=== PATIENT | male | born 1975 | race Caucasian/White ===

== ENCOUNTER 2024-07-09 10:34 | Outpatient (AMB) | payer BC, SELFPAY ==
--- NOTE | 2024-07-09 10:57 | A.OFFVIS_ITS ---
Vital Signs 3 07/09/24 11:03 Height 5 ft 10 in Weight 196 lb 8 oz BMI 28.2 BP 140/89 H Blood Pressure Location Lt brachial Position Sitting Pulse 66 Intake Visit Reasons: subcutaneous liopmas (R) arm and chest Intake Note: Patient is seen in office for evaluation of a lipoma of the right arm and chest. Pt c/o: right arm is recurrent for about a year, removed 6 yrs ago, chest has been present for a few months, painful and tender near the ribs, left arm onset 3 yrs, denies pain, redness, discharge or other concerns ref Dr Christianson Hand Molder Meat Required: No Accompanied by: Self / Same As Patient Allergies Penicillins Allergy (Mild, Verified 07/09/24 11:02) Hives Medication List - Last Reconciled 07/09/24 by Kartik Fong MD lisinopril 20 mg PO DAILY HPI Comments Details: 49-year-old male patient presenting for evaluation of several skin lipomas located in bilateral arms and right chest wall. He reports having a lesion excised from the right arm approximately 6 years ago and now this has recurred in the same location, 1st noted approximately 1 year ago. This is located in the forearm and seems to be increasing in size. A 2nd lesion located on the left upper arm also seems to be increasing in size was noted to have a bluish discoloration. He denies any previous surgery at this location. A 3rd location which is causing discomfort is in the right chest below the right nipple. He reports pain when the lump is palpated. He again denies any surgery at this location. He presents today to discuss removal of all 3 lesions. [facility] Surgical History Hx of tonsillectomy Hx of umbilical hernia repair Social History Alcohol intake: current Patient Tobacco Use Status: Never used Tobacco Review of Systems Const All systems reviewed & are unremarkable except as noted in HPI and below Physical Exam Vital Signs: Last Vital Signs Pulse 66 07/09/24 11:03 BP 140/89 H 07/09/24 11:03 BMI result Body Mass Index 28.2 Const General: comfortable Nutritional Appearance: well nourished Orientation/consciousness: patient oriented x3 Chest Other: Palpable soft tissue mass located below the right nipple measuring approximately 1.5 cm in diameter. Masses mobile within the subcutaneous tissue and most consistent with a lipoma. There is tenderness to palpation. Chest/axillae images: 2 1. Site of palpable lipoma 1.5 cm diameter. Resp Effort & Inspection: normal respiratory effort, no audible wheezes, no cough and no respiratory distress GI Inspection: Yes normal to inspection Neuro General: patient oriented x3 Extrem Other: Right forearm with a 1.5 cm soft tissue mass mobile within the subcutaneous tissue most consistent with a lipoma with no overlying skin changes. Left upper arm with a 1.5 cm soft tissue mass mobile within the subcutaneous tissue with a bluish discoloration but mobile within the subcutaneous tissue either a varix or lipoma. Shoulder/upper arm images: 2 1. Elbow/forearm/wrist images: 2 1. Assessment & Plan Assessment & Plan (1) Lipoma: Code(s): D17.9 - Benign lipomatous neoplasm, unspecified Category: Medical Plan 49-year-old male patient presenting with multiple lipoma including the right forearm, left upper arm and right chest wall all of which are increasing in size and causing some discomfort. Patient has requested excision of the 3 lesions and after discussion of the procedure, risks and alternatives, consents to excision of the lipomas as a minor surgery under local anesthesia. Coding Level of Care Code New Pt Level 4 (34491) Diagnoses Lipoma D17.9
[2024-07-09 11:03] VITALS: BP 140/89; PULSE 66; BMI 28.2
== END 2024-07-09 11:14 | disposition home or self-care (01) ==
PROVIDERS: PCP Internal Medicine; Visit Provider Surgery
DX: D17.9 Benign lipomatous neoplasm, unspecified (principal)
CPT/HCPCS: 99204

== ENCOUNTER → 2024-07-09 10:34 | Outpatient (BNVA) | payer BC, SELFPAY | PROVIDERS: PCP Internal Medicine; Visit Provider Surgery ==

== ENCOUNTER 2024-08-27 | Outpatient (REF) | payer BC, SELFPAY ==
[2024-08-27 13:19] VITALS: BP 162/93; PULSE 69; RESP 18; TEMP 36.6; O2SAT 99; BMI 27.3
--- NOTE | 2024-08-27 14:13 | W.PM.OPN ---
Operative Note Operative Note Date of Service: 08/27/24 Narrative: Preoperative diagnosis: Lipoma right forearm, right chest, left upper arm and left forearm Postoperative diagnosis: Same Procedure: Excision lipoma right forearm, right chest, left upper arm and left forearm Surgeon: Kartik Fong MD Bandage Maker: None Anesthesia: Local lidocaine 1% with epinephrine Indications for procedure: 49-year-old male patient presenting with painful soft tissue subcutaneous masses located in the above-noted locations. Each measured 1 cm in diameter. Operative findings: 1 cm lipomas involving the right forearm, right chest, right upper arm and right forearm Specimen: Lipoma x 4 right forearm, right chest, right upper arm and right forearm Estimated blood loss: 2 mL Complications: None Procedure details: Patient was brought to the minor surgery suite and placed in a supine position. The site of surgery was confirmed by the patient as noted above. Beginning on the right side the right chest and right forearm were prepped with Betadine and draped in a sterile fashion. Local anesthesia was then infiltrated over the 2 lesions. Beginning in the chest a transverse incision was made with a scalpel and carried out through subcutaneous tissue up to the lipoma. The lipoma was then sharply dissected from the surrounding subcutaneous tissue. The lesion was completely excised and sent to pathology for further examination. Light pressure was held to maintain hemostasis. Skin was closed using interrupted 4-0 Polysorb sutures in a subcuticular fashion. Attention was then directed to the right forearm. Again a longitudinal incision was made over the lipoma and carried out through subcutaneous tissue up to the lipoma. Sharp dissection was then used to dissect the lipoma from the surrounding subcutaneous tissue. An overlying vein was identified and preserved. The lesion was completely excised and sent to pathology for further examination. Skin was again closed using interrupted 4-0 Polysorb sutures. Both incisions were then dressed with Steri-Strips, 2 x 2 gauze and Tegaderm. Attention was then directed to the left arm where the forearm and upper arm lesions were prepped with Betadine and draped in a sterile fashion. Again local anesthesia was infiltrated over both lesions. Beginning in the forearm an incision was made directly over the lesion and carried out through subcutaneous tissue up to the lipoma. The lipoma immediately was able to be removed without any significant attachments. This was passed off the table and sent to pathology for further examination. Skin was then reapproximated using interrupted 4-0 Polysorb subcuticular sutures. Attention was then directed to the upper arm lesion were again incision was made in a longitudinal fashion directly over the lesion. Once again the lesion easily was removed and sent to pathology for further examination. Skin was closed using interrupted 4-0 Polysorb sutures in a subcuticular formation. Sterile dressings consisting of Steri-Strips, 2 x 2 gauze and Tegaderm were then applied. The patient tolerated the procedure well. Sponge, instrument, and needle counts reported as correct. The patient was discharged to home in stable condition.
--- OUTSIDE RECORDS SUMMARY | 2024-08-30 08:55 | XMS_ITS | Clinical Summary ---
Author Organization [facility] Address [address] [place] [address] Care Team Providers Care Research Home Economist Name Role Phone Unavailable Primary Care Provider Unavailabl e Source Comments PLEASE NOTE, if this patient is a minor, it may be UNLAWFUL to discuss sensitive information that is contained in these records (such as FAMILY PLANNING, MENTAL HEALTH or SUBSTANCE ABUSE) with the minor patient's parent or other person without the patient's specific authorization.[facility] Allergies Active Allergy Reactions Criticality Noted Date Comments Penicillin Anaphylaxis 02/23/2015 Medications polyethylene glycol (GLYCOLAX, MIRALAX) 17 gram/dose powderIndications :Constipation - functional Take 17 g by mouth once daily. Dissolve in a glass (8 oz) of water. 1530 g 1 5 Active albuterol sulfate hfa 90 mcg/actuation inhalerIndication s:Seasonal allergies Inhale 2 Puffs into the lungs every 4 to 6 (four to six) hours as needed for shortness of breath. 8.5 g 2 6 Active cetirizine (ZYRTEC) 10 mg tabletIndications :Seasonal allergies Take 1 Tab by mouth once daily. 30 Tab 5 6 Active benzonatate (TESSALON) 100 mg capsuleIndication s:Viral pharyngitis Take 1 Cap by mouth 3 (three) times daily as needed for cough Swallow whole. 20 Cap 2 7 Active azithromycin (ZITHROMAX) 250 mg tabletIndications :Bacterial sinusitis Take 1 Tab by mouth once daily 6 Tab 0 7 Active fluticasone (FLOVENT HFA) 44 mcg/actuation inhalerIndication s:Mild persistent asthma without complication Inhale 2 Puffs into the lungs 2 (two) times daily 3 Inhaler 0 7 Active Active Problems Problem Noted Date Diagnosed Date S/P tonsillectomy 07/18/2016 Immunizations Name Administration Dates Next Due Hep B, Adult/Adol (ENERGIX/RECOMBIVAX) 6,10/03/2015,08/21/2015 TDAP 08/21/2015 Social History Tobacco Use Types Packs/Day Years Used Date Smoking Tobacco: Never Smokeless Tobacco: Never Alcohol Use Standard Drinks/Week Comments Yes 3 (1 standard drink = 0.6 oz pur e alcohol) Social Connections Answer Date Recorded Social Connections and Isolation 0 02/14/2019 Financial Resource Strain Answer Date R ecorded Financial Resource Strain 0 2018 Stress Answer Date Recorded Stress 0 02/14/2019 Physical Activity Answer Date Recorded Physical Activity 0 02/14/2019 Food Insecurity Answer Date Recorded Food 0 02/14/2019 Transportation Needs Answer Date Record ed Transportation 0 02/14/2019 Housing Stability Answer Date Recorded Housing 0 02/14/2019 Safety and Environment Answer Date Aren rded Safety 0 02/14/2019 Utilities Answer Date Recorded Utilities 0 02/14/2019 Employment Answer Date Recorded Employment 0 02/14/2019 Sex and Gender Information Value Date Recorded Sex Assigned at Not on file Legal Sex Male 2:22 PM PDT Gender Identity Not on file Sexual Orientation Not on file Last Filed Vital Signs Vital Sign Reading Time Taken Comments Blood Pressure 130/88 09/10/2016 8:51 AM EDT Pulse 83 09/10/2016 8:51 AM EDT Temperature 36.7 ??C (98 ??F) 09/10/2016 8:51 AM EDT Respiratory Rate 14 09/10/2016 8:51 AM EDT Oxygen Saturation - - Inhaled Oxygen Concentration - - Weight 99.5 kg (219 lb 6.4 oz) 09/10/2016 8:51 A M EDT Height 175.3 cm (5' 9 ) 02/22/2016 11:17 AM EDT Body Mass Index 32.4 02/22/2016 11:17 AM EDT Plan of Treatment Not on file Insurance [employer]
--- OUTSIDE RECORDS SUMMARY | 2024-08-30 09:46 | XMS_ITS | Clinical Summary ---
Author Organization [facility] Address [address] [place] [address] Care Team Providers Care Shactor Helper Name Role Phone Unavailable Primary Care Provider [...] Plan of Treatment Not on file Insurance [email or web address]
== END 2024-08-27 00:01 | disposition home or self-care (01) ==
LOC: HO.MS
PROVIDERS: PCP Internal Medicine; Visit Provider Surgery
PROC: (CPT 11404; principal; 2024-08-27 13:30)
DX: D17.21 Benign lipomatous neoplasm of skin and subcutaneous tissue of right arm (principal); D17.22 Benign lipomatous neoplasm of skin and subcutaneous tissue of left arm; D17.1 Benign lipomatous neoplasm of skin and subcutaneous tissue of trunk
CPT/HCPCS: 11404; 88304; J2004

== ENCOUNTER → 2024-08-27 13:30 | Outpatient (BNV) | payer BC, SELFPAY | PROVIDERS: PCP Internal Medicine; Visit Provider Surgery | DX: D17.1 Benign lipomatous neoplasm of skin and subcutaneous tissue of trunk (principal); D17.21 Benign lipomatous neoplasm of skin and subcutaneous tissue of right arm; D17.22 Benign lipomatous neoplasm of skin and subcutaneous tissue of left arm | CPT/HCPCS: 21555; 24075; 25075 ==

== ENCOUNTER 2024-09-10 11:17 | Outpatient (AMB) | payer BC, SELFPAY ==
--- NOTE | 2024-09-10 11:19 | A.OFFVIS_ITS ---
Vital Signs 09/10/24 11:23 Height 5 ft 10 in Weight 189 lb 9.561 oz BMI 27.2 Respiration 18 Pulse 62 Intake Visit Reasons: s/p excision lipoma x3 Intake Note: Patient is seen in office for post op assessment post excision of multiple lipomas x3. Pt c/o: right arm lesion still has a lump not healing right per pt, no concerns regarding the other lesions, healing Chemical Process Equipment Operator Required: No Accompanied by: Self / Same As Patient Allergies Penicillins Allergy (Mild, Verified 09/10/24 11:20) Hives HPI Comments Details: 49-year-old male patient returning following excision of 4 lipomas involving the chest wall, and bilateral upper extremities. He tolerated the procedure well. He does note some swelling of the lipoma located in his right arm which may be a small seroma. The remaining wounds are clean and intact. He denies any other bleeding or discharge. [facility] Surgical History S/P excision of lipoma (08/27/24) Hx of tonsillectomy Hx of umbilical hernia repair Social History Alcohol intake: current Patient Tobacco Use Status: Never used Tobacco Physical Exam Vital Signs: Last Vital Signs Pulse 62 09/10/24 11:23 Resp 18 09/10/24 11:23 BMI result Body Mass Index 27.2 Const General: comfortable Nutritional Appearance: well nourished Orientation/consciousness: patient oriented x3 Chest Other: Incision in the right upper chest is clean, dry, and intact without redness or discharge. No palpable seroma or hematoma. Resp Effort & Inspection: normal respiratory effort, no audible wheezes, no cough and no respiratory distress GI Inspection: Yes normal to inspection Neuro General: patient oriented x3 Extrem Other: Right forearm incision is clean and intact. There is a palpable seroma with no erythema or ecchymosis. Left upper arm with incisions are clean, dry, and intact without redness or discharge. No seroma or hematoma is appreciated. Assessment & Plan Assessment & Plan (1) Lipoma: Code(s): D17.9 - Benign lipomatous neoplasm, unspecified Category: Medical Qualifiers: Lipoma location: upper extremity Laterality: unspecified laterality Qualified Code(s): D17.20 - Benign lipomatous neoplasm of skin and subcutaneous tissue of unspecified limb Plan 49-year-old male patient presenting with bilateral upper extremity lipomas and right chest wall lipoma previously excised 1 week ago. He tolerated the procedure well and his wounds are healing nicely. He does have a small seroma in the right arm which I recommended observation. If he should develop increased swelling, pain or redness he should call for possible aspiration. He expressed understanding and agrees with the plan. Coding Level of Care Code Global (26161) Diagnoses Lipoma of upper extremity, unspecified laterality D17.20 Lipoma location: upper extremity Laterality: unspecified laterality
[2024-09-10 11:23] VITALS: PULSE 62; RESP 18; BMI 27.2
--- OUTSIDE RECORDS SUMMARY | 2024-09-10 13:49 | XMS_ITS | Clinical Summary ---
Author Organization [facility] Address [address] [place] [address] Care Team Providers Care Cell Biologist Name Role Phone Unavailable Primary Care Provider [...] Plan of Treatment Not on file Insurance [employer]
== END 2024-09-10 11:31 | disposition home or self-care (01) ==
LOC: HO.HGS 11:18
PROVIDERS: PCP Internal Medicine; Visit Provider Surgery
DX: D17.20 Benign lipomatous neoplasm of skin and subcutaneous tissue of unspecified limb (principal)
CPT/HCPCS: 99024

== ENCOUNTER → 2024-09-10 11:17 | Outpatient (BNVA) | payer BC, SELFPAY | PROVIDERS: PCP Internal Medicine; Visit Provider Surgery ==

== ENCOUNTER 2025-01-28 10:17 | Outpatient (AMB) | payer BC, SELFPAY ==
--- OUTSIDE RECORDS SUMMARY | 2025-01-07 10:10 | XMS_ITS ---
Author Organization [facility] Address [address] [place] [phone] Care Team Providers Care Boat Hand Name Role Phone Meghan (RETIRED) Filipe HEAD Primary Care Provider Unavailable Barber Sheffield [phone] REASON FOR VISIT screening Encounters Encounter Location Date Provider Diagnosis [facility] [place] [address] [place] [id number] 01/07/2025 Barber Sheffield Plan Of Treatment Next Appt Details Provider Name:Barber Sheffield , 02/28/2025 11:30:00 AM, [address] [place] [address], [phone], Progress Notes * ROA OCTAVIO PDOB:1975 ( 49 yo M)Acc No.[id number]:01/07/2025 COLON WITH MAC Patient: KRISTIE JAYZaria Fowler Provider: Hiram Sheffield MD :1975 A ge:49 Y S ex:Male Date:01/07/2025 Address:[address] [address], [id number] Pcp:Filipe Christianson (RETIRED) MD Subjective: * Chief [...] 01/07/2025 Generated for Rogers meza/Kaiden/eTransmitting on: 0 01/28/2025 10:20 AM EDT
--- OUTSIDE RECORDS SUMMARY | 2025-01-28 10:20 | XMS_ITS | Clinical Summary ---
Author Organization [facility] Address [address] [place] [address] Care Team Providers Care Expense Analyst Name Role Phone Unavailable Primary Care Provider [...] mcg/actuation inhalerIndication s:Mild persistent asthma without complication ([facility]) Inhale 2 Puffs into the lungs 2 (two) times daily 3 Inhaler 0 7 Active Active Problems Problem Noted Date Diagnosed Date S/P tonsillectomy 07/18/2016 Immunizations Immunization Administration Dates Next Due Hep B, Adult/Adol ([id number]-H-ZNDAD/RECOMBIVAX-ADULT) 02/28/2016,10/03/2015,08/21/2015 TDAP 08/21/2015 Social History Tobacco Use [...] Plan of Treatment Not on file Insurance [employer]
--- OUTSIDE RECORDS SUMMARY | 2025-01-28 10:20 | XMS_ITS | Clinical Summary ---
Author Organization [facility] Address [address] [place] [address] Phone Care Team Providers Care Cover Operator Name Role Phone Emma Carline Stapleton INTERNAL MEDICINE NURSE PRACTITIONER, DNP Unavailable Allergies Active Allergy Reactions Criticality [...] EDT) CHOLESTEROL 164 0 - 200 MG/DL [facility] TRIGLYCERIDE 74 0 - 150 MG/DL [facility] HDL 55 >39 MG/DL [facility] CHOL/HDL 3.0 <5 [facility] LDL 94 40 - 130 MG/DL [facility] NON-HDL CHOLESTEROL 109.0 MG/DL [facility] Comment: Reference Range: The non-HDL Cholesterol value should not exceed the desired LDL-C by more than 30 mg/dl. 10/09/2015 9:19 AM EDT 10/09/2015 1:11 PM EDT us Conversion Provider Not In Sys LAB BLOOD ORDERAB LES Final Result Performing Organization Address City/State/[facility] Co de Phone Number [place] [phone], [facility] from Last 3 Months or Most Recently Relevant to Health Maintenance Insurance [facility] COMPLETE O [facility] COM[facility] O [facility] HMO [facility] COMPLETE HMO [facility] COMPLETE HMO [facility] COMPLETE HMO Care Teams Cover Operator Relationship Specialty Start Date End Date Carline Carter, INTERNAL MEDICINE NURSE PRACTITIONER, DNP [address] [place] [address] JESSIE Lopez [phone] [email or web address] Nurse Practitioner 10/08/23 Additional Source Comments The information contained in this document represents components of the legal health record. It is not the complete legal health record.[facility]
--- NOTE | 2025-01-28 10:30 | MHC.PC.OV ---
Vital Signs 01/28/25 10:33 Height 5 ft 10 in Weight 209 lb BMI 30.0 BP 121/71 Respiration 14 Pulse 62 Pulse Source Pulse Oximeter Temp 98.2 F Temp Source Temporal Artery Scan Pulse Oximetry (%) 99 Oxygen Delivery Method Room Air Intake Visit Reasons: establish care Sugar Boiler Required: No Accompanied by: Self / Same As Patient Allergies Penicillins Allergy (Mild, Verified 01/28/25 11:55) Hives Medication List - Last Reconciled 01/28/25 by Tiffanie Nichole PA-C lisinopril 20 mg PO DAILY Tobacco use date assessed: 01/28/25 Dental Screening Dental Screen Date: 01/28/25 Did you have a dental visit in the last 12 months?: Yes Did you have a dental problem in the last 6 months where you did not have access to dental care?: No Was dental information given to patient?: Patient has dentist HPI establish care HPI Details The patient is a 49-year-old male presenting for a new patient appointment and management of essential hypertension. The patient has a history of essential hypertension, currently managed with lisinopril 20 mg daily. He reports that his blood pressure was previously elevated at 145/90 mmHg but has improved with increased hydration and exercise. The patient engages in regular physical activity, including running, and has noticed improvement in blood pressure control with adequate hydration. The patient is due for routine blood work, including CBC, CMP, hemoglobin A1c, cholesterol, liver panel, magnesium, vitamin B12, vitamin D, PSA, and testosterone. He is also scheduled for STI testing, including syphilis, HIV, gonorrhea, and chlamydia. Family history is significant for prostate cancer, lung cancer, and breast cancer in his grandfathers. The patient has no personal history of cancer and has had a lipoma removed in the past, which was benign. Social History - Exercise: Engages in regular physical activity, including running. - Family status: Has a family history of prostate, lung, and breast cancer in grandfathers. [facility] Medical History (Updated 01/28/25 @ 11:59 by Tiffanie Nichole PA-C) Encounter for preventative adult health care examination Hypertension General medical exam Surgical History S/P excision of lipoma (08/27/24) Hx of tonsillectomy Hx of umbilical hernia repair Family History Father Diabetes Stroke Mother BP (high blood pressure) Hyperthyroidism Social History Housing: Condominium Alcohol intake: current Alcohol intake frequency: a few times a week Patient Tobacco Use Status: Never used Tobacco service: No Current occupational status: employed Cognitive needs: No Hearing needs: No Vision needs: Yes (rx glasses) Questionnaire PHQ-9 Over the last 2 weeks, how often have you been bothered by any of the following problems? 1. Little interest or pleasure in doing things: not at all 2. Feeling down, depressed, or hopeless: not at all 3. Trouble falling or staying asleep, or sleeping too much: not at all 4. Feeling tired or having little energy: not at all 5. Poor appetite or overeating: not at all 6. Feeling bad about yourself - or that you are a failure or have let yourself or your family down: not at all 7. Trouble concentrating on things, such as reading the newspaper or watching television: not at all 8. Moving or speaking so slowly that other people could have noticed. Or the opposite - being so fidgety or restless that you have been moving around a lot more than usual: not at all 9. Thoughts that you would be better off or of hurting yourself in some way: not at all Total score: 0 Depression Screening Interpretation: Negative Depression Screening Done: Yes 76713 - PHQ-9 Billing: Yes Source: Developed by Drs. Barber Denton, Merline Post, Dean Rivera and colleagues, with an educational seamus from [employer] software. Thrive Questionnaire Date Thrive assessed: 01/28/25 I am a: Patient What is your living situation today?: I have a steady place to live Within the past 12 months, did the food you bought not last and you didn't have the money to get more?: Never true Within the past 12 months, did you worry whether your food would run out before you got money to buy more?: Never true Do you have trouble paying for medicines?: No Do you have trouble getting transportation to medical appointments?: No Do you have trouble paying your heating and electricity bill?: No Do you have trouble taking care of your child, family member or friend?: No Do you have trouble with day-to-day activities such as bathing, preparing meals, shopping, managing finances, etc.?: No Are you currently unemployed and looking for a job?: No Are you interested in more education?: No Please select the resources that you would like help with: None THRIVE Score: 0 AUDIT C Alcohol Use Questionnaire (AUDIT-C) 1. How often do you have a drink containing alcohol?: 2-3 times a week 2. How many drinks containing alcohol do you have on a typical day when you are drinking?: 1 or 2 3. How often do you have six or more drinks on one occasion?: Never Total Score: 3 Score Reviewed/Action Taken: No WILFREDO-7 AMB Questionnaire WILFREDO-7 Date WILFREDO - 7 assessed: 01/28/25 Feeling nervous, anxious, or on edge: 0 = Not at all Not being able to stop or control worryin = Not at all Worrying too much about different things: 0 = Not at all Trouble relaxin = Not at all Being so restless that it is hard to sit still: 0 = Not at all Becoming easily annoyed or irritable: 0 = Not at all Feeling afraid as if something awful might happen: 0 = Not at all Total WILFREDO-7 score (0-4 normal; 5-9 mild; 10-14 moderate; 15-21 severe): 0 Source: Developed by Drs. Barber Denton, Merline Post, Dean Rivera and colleagues, with an educational seamus from [employer] software. WILFREDO-7 Assessment Billing WILFREDO-7 Assessment Tool: WILFREDO-7 Assessment 06430 Review of Systems Const Details: - Cardiovascular: Denies chest pain. - Gastrointestinal: Denies abdominal pain. - Genitourinary: Denies dysuria. - Dermatological: Denies rashes. - Musculoskeletal: Denies foot pain. All systems reviewed & are unremarkable except as noted in HPI and below Physical exam (Primary Care) Vital Signs: Last Vital Signs Temp 98.2 F 01/28/25 10:33 Pulse 62 01/28/25 10:33 Resp 14 01/28/25 10:33 BP 121/71 01/28/25 10:33 Pulse Ox 99 08/08/25 10:33 Oxygen Delivery Method Room Air 01/28/25 10:33 Care Plan Goal for BP management: <140/90 at Goal BMI result Body Mass Index 30.0 BMI Assessment/Plan discussion: High BMI High, discussed plan: lifestyle, weight reduction, dietary, physical activity, alcohol moderation and other Tobacco/Smoking Status: Tobacco use Status Tobacco use date assessed 01/28/25 01/28/25 10:37 Patient Tobacco Use Status Never used Tobacco 01/28/25 10:37 PHQ-9: PHQ-9 Score PHQ-9: Total score 0 01/28/25 10:37 Depression Screening Interpretation: Negative Thrive Assessment: Date of Thrive Assessment Date Thrive assessed 01/28/25 01/28/25 10:37 Const Other: Appearance: Alert. Oriented X3. No acute distress. Head: Normal external exam. Normocephalic. Atraumatic. Eyes: Pupils are equal, round, and reactive to light. Extraocular movements intact. Conjunctiva and sclera normal. Eyelids normal. Ears: External auditory canal normal. Tympanic membranes normal. Throat: Pharynx normal. Uvula midline. Moist mucous membranes. Neck: Normal inspection. Neck supple. Full range of motion. No adenopathy. Thyroid Normal. No meningeal signs. No neck mass noted. Cardiovascular: Normal heart rate and rhythm. Heart sound normal. No murmurs noted. Pulses normal throughout. Respiratory: No respiratory distress. Painless inspiration. Breath sounds normal. No wheezes/rales/rhonchi noted. Chest nontender. No accessory muscle usage noted or decreased air movement noted. Abdomen: Soft and nontender. Bowel sounds normal in all 4 quadrants. No distention noted. No organomegaly noted. No visible injury noted. Back: No costovertebral angle tenderness. Full range of motion noted. Skin: Skin warm and dry. Normal skin color. Normal skin turgor. No rashes/lesions/lacerations noted. Extremities: No lower extremity edema. Extremities exhibit normal range of motion. Extremities nontender. Neuro: Oriented X 3. No motor deficit. No sensory deficit. Reflexes normal. Coding Level of Care Code New Pt Level 4 (46806) Complex EM visit Add On G2211 Diagnoses Hypertension I10 Encounter for preventative adult health care examination Z00.00 Additional Codes PHQ-9 - 61394 - PHQ-9 Billing: Yes ([id number]) WILFREDO-7 Assessment Billing - WILFREDO-7 Assessment Tool: WILFREDO-7 Assessment 31570 ([id number]) Assessment & Plan Assessment & Plan (1) Hypertension: Code(s): I10 - Essential (primary) hypertension Category: Medical Plan: The patient is currently on lisinopril 20 mg daily for management of essential hypertension. He has been advised to monitor his blood pressure and consider reducing the dose if his blood pressure remains consistently low. Increased hydration and regular exercise have been recommended to aid in blood pressure control. (2) Encounter for preventative adult health care examination: Code(s): Z00.00 - Encounter for general adult medical examination without abnormal findings Category: Medical Plan: Routine blood work has been ordered, including CBC, CMP, hemoglobin A1c, cholesterol, liver panel, magnesium, vitamin B12, vitamin D, PSA, and testosterone. STI testing, including syphilis, HIV, gonorrhea, and chlamydia, has also been scheduled. The patient has been instructed to complete these tests while fasting. Plan Plan Patient was informed and verbally consented to the use of an ambient scribe for clinic note documentation during this visit. 1. Essential Hypertension The patient is currently on lisinopril 20 mg daily for management of essential hypertension. He has been advised to monitor his blood pressure and consider reducing the dose if his blood pressure remains consistently low. Increased hydration and regular exercise have been recommended to aid in blood pressure control. 2. Preventative Care Routine blood work has been ordered, including CBC, CMP, hemoglobin A1c, cholesterol, liver panel, magnesium, vitamin B12, vitamin D, PSA, and testosterone. STI testing, including syphilis, HIV, gonorrhea, and chlamydia, has also been scheduled. The patient has been instructed to complete these tests while fasting. During the visit, we discussed the management of essential hypertension, including the current use of lisinopril 20 mg daily. I advised the patient to monitor his blood pressure and consider dose adjustment if his blood pressure remains low. We also discussed the importance of hydration and regular exercise in managing blood pressure. Preventative care measures were reviewed, including the need for routine blood work and STI testing. The patient was instructed to complete these tests while fasting and was informed about the process for obtaining the tests. Orders: Orders Complete Blood Count Auto Diff Today Z00.00 - Encounter for general adult medical examination without abnormal findings Comprehensive [place]. Panel Fast Today Z00.00 - Encounter for general adult medical examination without abnormal findings Lipid Panel Today Z00.00 - Encounter for general adult medical examination without abnormal findings Vitamin D 25-OH Total Today Z00.00 - Encounter for general adult medical examination without abnormal findings PSA,Total (Free>4and<10) Today Z00.00 - Encounter for general adult medical examination without abnormal findings Testosterone, Free/Total Today Z00.00 - Encounter for general adult medical examination without abnormal findings Dihydrotestosterone Today Z00.00 - Encounter for general adult medical examination without abnormal findings DHEA Sulfate Today Z00.00 - Encounter for general adult medical examination without abnormal findings RPR Monitor reflex titer Today Z00.00 - Encounter for general adult medical examination without abnormal findings CT NG by PCR Urine Today Z00.00 - Encounter for general adult medical examination without abnormal findings C Reactive Protein Today Z00.00 - Encounter for general adult medical examination without abnormal findings Hemoglobin A1c Today Z00.00 - Encounter for general adult medical examination without abnormal findings Liver Panel Today Z00.00 - Encounter for general adult medical examination without abnormal findings Magnesium Today Z00.00 - Encounter for general adult medical examination without abnormal findings Vitamin B12 and Folate Today Z00.00 - Encounter for general adult medical examination without abnormal findings HIV Ab/Ag Today Z00.00 - Encounter for general adult medical examination without abnormal findings Medications: New lisinopril 20 mg PO DAILY 90 tabs 3RF I10 - Essential (primary) hypertension Patient Instructions: - Continue taking lisinopril 20 mg daily for blood pressure management. - Monitor blood pressure regularly and report any significant changes. - Maintain adequate hydration and engage in regular exercise. - Complete routine blood work and STI testing while fasting. - Schedule follow-up appointment towards the end of the year.
[2025-01-28 10:33] VITALS: BP 121/71; PULSE 62; RESP 14; TEMP 36.8; O2SAT 99
== END 2025-01-28 11:33 | disposition home or self-care (01) ==
LOC: HO.HMCSH 10:17
PROVIDERS: PCP Internal Medicine; Visit Provider Physician Assistant Medical
DX: I10 Essential (primary) hypertension (principal); Z00.00 Encounter for general adult medical examination without abnormal findings

== ENCOUNTER → 2025-01-28 10:17 | Outpatient (BNVA) | payer BC, SELFPAY | PROVIDERS: PCP Internal Medicine; Visit Provider Physician Assistant Medical | DX: Z00.00 Encounter for general adult medical examination without abnormal findings (principal); I10 Essential (primary) hypertension; Z79.899 Other long term (current) drug therapy | CPT/HCPCS: 96127 ==

== ENCOUNTER 2025-02-03 07:17 | Outpatient (REF) | payer BC, SELFPAY ==
--- OUTSIDE RECORDS SUMMARY | 2025-01-07 10:10 | XMS_ITS ---
Author Organization [facility] Address [address] [place] [phone] Care Team Providers Care Director Agricultural Services Name Role Phone Meghan (RETIRED) Filipe HEAD Primary Care Provider Unavailable Barber Sheffield [phone] REASON FOR VISIT screening Encounters Encounter Location Date Provider Diagnosis [facility] [place] [address] [place] [id number] 01/07/2025 Barber Sheffield Plan Of Treatment Next Appt Details Provider Name:Barber Sheffield , 02/28/2025 11:30:00 AM, [address] [place] [address], [id number], Progress Notes * ROAOCTAVIO PDOB:1975 ( 49 yo M)Acc No.[id number]:01/07/2025 COLON WITH MAC Patient: KRISTIE JAYZaria Fowler Provider: Hiram Sheffield MD :1975 A ge:49 Y S ex:Male Date:01/07/2025 Address:[address] [address], [id number] Pcp:Filipe Christianson (RETIRED) MD Subjective: * Chief [...] 01/07/2025 Generated for Rogers meza/Kaiden/eTransmitting on: 0 02/03/2025 07:20 AM EDT
--- OUTSIDE RECORDS SUMMARY | 2025-02-03 07:20 | XMS_ITS | Clinical Summary ---
Author Organization [facility] Address [address] [place] [address] Phone Care Team Providers Care Financial Legal Assistant Name Role Phone Emma Carline Stapleton EDUCATION COURSES SALES REPRESENTATIVE, DNP Unavailable Allergies Active Allergy Reactions Criticality [...] EDT) CHOLESTEROL 164 0 - 200 MG/DL [facility] TRIGLYCERIDE 74 0 - 150 MG/DL [facility] HDL 55 >39 MG/DL [facility] CHOL/HDL 3.0 <5 [facility] LDL 94 40 - 130 MG/DL [facility] NON-HDL CHOLESTEROL 109.0 MG/DL [facility] Comment: Reference Range: The non-HDL Cholesterol value should not exceed the desired LDL-C by more than 30 mg/dl. 10/09/2015 9:19 AM EDT 10/09/2015 1:11 PM EDT us Conversion Provider Not In Sys LAB BLOOD ORDERAB LES Final Result Performing Organization Address City/State/[facility] Co de Phone Number [place] [phone], [facility] from Last 3 Months or Most Recently Relevant to Health Maintenance Insurance [facility] COMPLETE O [facility] COM[facility] O [facility] COM[facility] HMO [facility] COM[facility] HMO [facility] COM[facility]TE HMO Care Teams Financial Legal Assistant Relationship Specialty Start Date End Date Carline Carter, EDUCATION COURSES SALES REPRESENTATIVE, DNP [address] [place] [address] JESSIE Lopez [phone] [email or web address] Nurse Practitioner 10/08/23 Additional Source Comments The information contained in this document represents components of the legal health record. It is not the complete legal health record.[facility]
--- OUTSIDE RECORDS SUMMARY | 2025-02-03 07:20 | XMS_ITS | Clinical Summary ---
Author Organization [facility] Address [address] [place] [address] Care Team Providers Care Senior Clinical Sas Programmer Name Role Phone Unavailable Primary Care Provider [...] mcg/actuation inhalerIndication s:Mild persistent asthma without complication ([facility]) Inhale 2 Puffs into the lungs 2 (two) times daily 3 Inhaler 0 7 Active Active Problems Problem Noted Date Diagnosed Date S/P tonsillectomy 07/18/2016 Immunizations Immunization Administration Dates Next Due Hep B, Adult/Adol ([id number]/RECOMBIVAX-ADULT) 02/28/2016,10/03/2015,08/21/2015 TDAP 08/21/2015 Social History Tobacco Use [...] Plan of Treatment Not on file Insurance [employer]
[2025-02-03 07:48] LABS: MANUAL DIFF FLAG NO
[2025-02-03 08:36] LABS: Hematocrit 39.1 % (42.0-52.0); Hemoglobin 13.6 g/dl (14.0-18.0); Imm Gran Abs Auto 0.01 X10*3/uL (0.00-0.03); Imm Gran Pct Auto 0.2 % (0.0-0.4); Lymphocytes Absolute Auto 1.9 X10*3/uL (1.2-4.9); Mean Corpuscular HGB Conc 34.8 g/dl (31.0-36.0); Mean Corpuscular Hemoglobin 29.4 pg (27.0-33.0); Mean Corpuscular Volume 84.4 fL (80.0-98.0); NRBC Abs Auto 0.000 X10*3/uL (0.0-0.012); NRBC Pct Auto 0.0 /100WBC (0.0-0.2); Platelet Count 172 X10*3/uL (160-400); Red Blood Count 4.63 X10*6/uL (4.60-5.80); White Blood Count 5.0 X10*3/uL (4.8-10.8)
[2025-02-03 09:12] LABS: Hemoglobin A1C 136.0471 umol/L; Total Hemoglobin (HGBA1C) 3631.9700 umol/L
[2025-02-03 09:18] LABS: Alanine Aminotransferase 35 U/L (0-40); Albumin Level 4.6 g/dL (3.5-5.0); Alkaline Phosphatase 78 U/L (39-117); Anion Gap 13 (12-20); Aspartate Amino Transferase 26 U/L (5-37); Blood Urea Nitrogen 12 mg/dL (9-16); Calcium 9.1 mg/dL (8.4-10.2); Carbon Dioxide 24 mmol/L (22-29); Chloride 106 mmol/L (96-108); Cholesterol 195 mg/dL (<200); Estimated Glomerular Filt Rate > 60; HDL Cholesterol 50 mg/dL (>40); HIV Num 1 0.06 S/CO (0.00-0.99); Magnesium 2.1 mg/dL (1.6-2.6); Potassium 4.3 mmol/L (3.3-5.1); Sodium 139 mmol/L (135-145); Total Protein 7.0 g/dL (6.5-8.0); Triglycerides 197 mg/dL (<150)
[2025-02-03 09:26] LABS: PSA,Total (Free>4and<10) 1.88 ng/mL (0.00-4.00)
[2025-02-03 09:53] LABS: Folate 11.6 ng/mL (> or = 4.0); Vitamin B12 485 pg/mL (200-900)
[2025-02-03 11:11] LABS: CT PCR Urine NOT DETECTED (Not Detect.); NG PCR Urine NOT DETECTED (Not Detect.)
[2025-02-07 17:43] LABS: Testosterone, Free 64.3 pg/mL (35.0-155.0)
== END 2025-02-03 07:18 | disposition home or self-care (01) ==
LOC: HO.LAB 07:17
PROVIDERS: PCP Internal Medicine; Visit Provider Physician Assistant Medical
DX: Z00.00 Encounter for general adult medical examination without abnormal findings (principal); Z13.6 Encounter for screening for cardiovascular disorders; Z13.1 Encounter for screening for diabetes mellitus; Z12.5 Encounter for screening for malignant neoplasm of prostate; Z11.3 Encounter for screening for infections with a predominantly sexual mode of transmission; Z11.4 Encounter for screening for human immunodeficiency virus [HIV]; Z11.8 Encounter for screening for other infectious and parasitic diseases
CPT/HCPCS: 36415; 80053; 80061; 80076; 82248; 82306; 82607; 82627; 82642; 82746; 83036; 83735; 84153; 84402; 84403; 85025; 86140; 86592; 87389; 87491; 87591

== ENCOUNTER 2025-02-28 08:04 | Day surgery (SDC) | payer BC, SELFPAY ==
--- OUTSIDE RECORDS SUMMARY | 2025-01-07 10:10 | XMS_ITS ---
Author Organization [facility] Address [address] [place] [phone] Care Team Providers Care Fourth Mate Name Role Phone Meghan (RETIRED) Filipe HEAD Primary Care Provider Unavailable Barber Sheffield [phone] REASON FOR VISIT screening Encounters Encounter Location Date Provider Diagnosis [facility] [place] [address] [place] [id number] 01/07/2025 Barber Sheffield Plan Of Treatment Next Appt Details Provider Name:Barber Sheffield , 02/28/2025 11:30:00 AM, [address] [place] [address], [phone], Progress Notes * ROAOCTAVIO PDOB:1975 ( 49 yo M)Acc No.[id number]:01/07/2025 COLON WITH MAC Patient: KRISTIE JAYZaria Fowler Provider: Hiram Sheffield MD :1975 A ge:49 Y S ex:Male Date:01/07/2025 Address:[address] [address], [id number] Pcp:Filipe Christianson (RETIRED) MD Subjective: * Chief Complaints: * 1 . Screening. * Medical History: Objective: * Vitals: Assessment: Plan: * Treatment: * * The named appointment provid er may or may not be the originator of this progress note, and it is not deemed complete until electronically signed by the appointment provider. Sign off status: Pending * Provider: Hiram Sheffield MD Date: 0 01/07/2025 Generated for Rogers meza/Kaiden/eTransmitting on: 0 01/17/2025 02:48 PM EDT
--- OUTSIDE RECORDS SUMMARY | 2025-01-17 14:48 | XMS_ITS | Clinical Summary ---
Author Organization [facility] Address [address] [place] [address] Care Team Providers Care Title I Director Name Role Phone Unavailable Primary Care Provider [...] mcg/actuation inhalerIndication s:Mild persistent asthma without complication ([facility]) Inhale 2 Puffs into the lungs 2 (two) times daily 3 Inhaler 0 7 Active Active Problems Problem Noted Date Diagnosed Date S/P tonsillectomy 07/18/2016 Immunizations Immunization Administration Dates Next Due Hep B, Adult/Adol (ZAKCFUY-W-BTFPK/RECOMBIVAX-ADULT) 02/28/2016,10/03/2015,08/21/2015 TDAP 08/21/2015 Social History Tobacco Use Types [...] 83 09/10/2016 8:51 AM EDT Temperature 36.7 C (98 F) 09/10/2016 8:51 AM EDT Respiratory Rate 14 09/10/2016 8:51 AM EDT Oxygen Saturation - - Inhaled Oxygen Concentration - - Weight 99.5 kg (219 lb 6.4 oz) 09/10/2016 8:51 A M EDT Height 175.3 cm (5' 9 ) 02/22/2016 11:17 AM EDT Body Mass Index 32.4 02/22/2016 11:17 AM EDT Plan of Treatment Not on file Insurance [employer]
--- OUTSIDE RECORDS SUMMARY | 2025-01-17 14:48 | XMS_ITS | Clinical Summary ---
Author Organization [facility] Address [address] [place] [address] Phone Care Team Providers Care Beauty Artist Name Role Phone Emma Carlnie Stapleton BUSINESS SUPPORT ADMINISTRATOR, DNP Unavailable Allergies Active Allergy Reactions Criticality Noted Date Comments Hops (Humulus Lupulus) GI Upset,Nausea Only 09/2016 Penicillins Anaphylaxis,Hives High 01/16/2007 hives Medications methylPREDNISol one (MEDROL DOSEPACK) 4 mg tablet follow package directions 21 tablet 4 Active methocarbamoL (ROBAXIN) 750 MG tablet Take 1 tablet (750 mg total) by mouth every 8 (eight) hours as needed (muscle pain/spasms). 20 tablet 4 Active Social History Tobacco Use Types Packs/Day Years Used Date Smoking Tobacco: Never Assessed Education Answer Date Recorded Are you interested in more education? Not on erich e 10/18/2022 Are you concerned about learning? Not on file 10/18/2022 No 10/18/2022 No 10/18/2022 Digital Access Answer Date Recorded No 11/18/2022 No 11/18/2022 No 11/18/2022 Reliable internet access at home? Not on file 11/18/2022 Device with a working camera? Not on file Sex and Gender Information Value Date Recorded Sex Assigned at Male 09/17/2023 2:08 PM EDT Legal Sex Male 10:55 PM EDT Gender Identity Male 09/17/2023 2:08 PM EDT Sexual Orientation Lesbian or Hernández 09/17/2023 2: 08 PM EDT Last Filed Vital Signs Vital Sign Reading Time Taken Comments Blood Pressure 149/99 10/08/2023 2:05 PM EDT Pulse 81 10/08/2023 2:05 PM EDT Temperature 36.7 C (98.1 F) 10/08/2023 2:05 PM EDT Respiratory Rate 18 10/08/2023 2:05 PM EDT Oxygen Saturation 98% 10/08/2023 2:05 PM EDT Inhaled Oxygen Concentration - - Weight - - Height - - Body Mass Index - - Plan of Treatment Health Maintenance Due Date Last Done Comments DEPRESSION SCREENING 1989 SMOKING Hx and SMOKELESS TOBACCO SCREENING 1990 HEPATITIS C SCREENING 1995 HIV ONE-TIME SCREENING (18-65 YEARS) 1995 COLOGUARD 2022 COLONOSCOPY 2022 COLORECTAL CANCER SCREENING 2022 FIT TEST 2022 FOBT 2022 SIGMOIDOSCOPY 2022 VIRTUAL COLONOSCOPY 2022 COVID-19 VACCINE ( season) 2024 Adult Td,Tdap Booster 08/20/2025 08/21/2015 LIPID PANEL 07/05/2027 07/05/2022, 01/21, 01/07/2020, Additional history exists HEPATITIS A VACCINES Aged Out No long er eligible based on patient's age to complete this topic HIB VACCINES Aged Out No longer eligi ble based on patient's age to complete this topic MENINGOCOCCAL VACCINES (ACWY) Aged Out No longer eligible based on patient's age to complete this topic MENINGOCOCCAL VACCINES (B) Aged Out N o longer eligible based on patient's age to complete this topic PNEUMOCOCCAL VACCINES (0-49 years) Aged Out No longer eligible based on patient's age to complete this topic Medical Devices Not on file Procedures Procedure Name Priority Date/Time Associated Diagnosis Comments LIPID PANEL Routine 10/09/2015 9:19 AM EDT from Last 3 Months or Most Recently Relevant to Health Maintenance Results * Lipid panel (10/09/2015 9:19 AM EDT) CHOLESTEROL 164 0 - 200 MG/DL [facility] TRIGLYCERIDE 74 0 - 150 MG/DL [facility] HDL 55 >39 MG/DL [facility] CHOL/HDL 3.0 <5 [facility] LDL 94 40 - 130 MG/DL [facility] NON-HDL CHOLESTEROL 109.0 MG/DL [facility] Comment: Reference Range: The non-HDL Cholesterol value should not exceed the desired LDL-C by more than 30 mg/dl. 10/09/2015 9:19 AM EDT 10/09/2015 1:11 PM EDT us Conversion Provider Not In Sys LAB BLOOD ORDERAB LES Final Result Performing Organization Address City/State/[facility] Co de Phone Number [place] [phone], [facility] from Last 3 Months or Most Recently Relevant to Health Maintenance Insurance [facility]MO [facility]MO [facility] HMO Care Teams Beauty Artist Relationship Specialty Start Date End Date Carline Carter, BUSINESS SUPPORT ADMINISTRATOR, DNP [address] [place] [address] JESSIE Lopez [phone] [email or web address] Nurse Practitioner 10/08/23 Additional Source Comments The information contained in this document represents components of the legal health record. It is not the complete legal health record.[facility]
[2025-02-24 13:32] VITALS: BMI 29.8
--- NOTE | 2025-02-25 11:49 | HO.ANESPROP2 ---
Documented by User: Odalis Patel NP 02/25/25 11:50 HPI - Anesthesia Eval Consult details Narrative: 49 yr old male for colonoscopy PMF Active Problems Active Problems: All Active Problems (Updated 02/24/25 @ 13:33 by Nirali El RN) Lipoma (Acute) Hyperlipidemia LDL goal <100 (Acute) Hypertriglyceridemia (Acute) Prediabetes (Acute) Encounter for preventative adult health care examination (Acute) Hypertension (Acute) General medical exam (Acute) Past Medical History Medical History Depression Hyperlipidemia LDL goal <100 Hypertriglyceridemia Prediabetes Hypertension Family History Family History Father Diabetes Stroke Mother BP (high blood pressure) Hyperthyroidism Surgical History Surgical History S/P excision of lipoma (08/27/24) Hx of tonsillectomy Hx of umbilical hernia repair Social History Social History (Updated 02/24/25 @ 13:34 by Nirali El RN) Housing: Condominium Are you a primary pet care technician to a significant other at home: No Do you presently have visiting nurse or other home services: No Alcohol intake: current Alcohol intake frequency: a few times a week Patient Tobacco Use Status: Never used Tobacco Use of substances other than those prescribed or required for medical reasons: Yes Substance Use Frequency: Weekly Have you been hit, kicked, punched, or otherwise hurt by someone within the past year? If so, by whom?: No Are you DNR?: No Advance Directives: No Advance Directives Information Provided: Yes Poor oral hygiene: No service: No Current occupational status: employed Cognitive needs: No Hearing needs: No Vision needs: Yes (rx glasses) Meds Allergies Allergy/AdvReac Type Severity Reaction Status Date / Time Penicillins Allergy Mild Hives Verified 02/28/25 09:18 Exam Height,Weight and Vital Signs: Height 5 ft 10 in Weight 94.256 kg Documented by User: Georgia Garrett MD 02/28/25 10:49 PMFSH Past Medical History Medical History Depression Hyperlipidemia LDL goal <100 Hypertriglyceridemia Prediabetes Hypertension Family History Family History Father Diabetes Stroke Mother BP (high blood pressure) Hyperthyroidism Family history of problems with anesthesia: No Surgical History Surgical History S/P excision of lipoma (08/27/24) Hx of tonsillectomy Hx of umbilical hernia repair History of Problems with Anesthesia: No Social History Social History (Updated 02/24/25 @ 13:34 by Nirali El RN) [facility] Are you a primary pet care technician to a significant other at home: No Do you presently have visiting nurse or other home services: No Alcohol intake: current Alcohol intake frequency: a few times a week Patient Tobacco Use Status: Never used Tobacco Use of substances other than those prescribed or required for medical reasons: Yes Substance Use Frequency: Weekly Have you been hit, kicked, punched, or otherwise hurt by someone within the past year? If so, by whom?: No Are you DNR?: No Advance Directives: No Advance Directives Information Provided: Yes Poor oral hygiene: No service: No Current occupational status: employed Cognitive needs: No Hearing needs: No Vision needs: Yes (rx glasses) Meds Allergies Allergy/AdvReac Type Severity Reaction Status Date / Time Penicillins Allergy Mild Hives Verified 02/28/25 09:18 Exam Airway Mallampati Class: II TM Dist: >3cm Neck ROM: Full Heart: rrr Lungs: cta Assessment and Plan Assessment Anesthesia Assessment: Anesthesia Plan Discussed and Chart Reviewed Final Anesthetic Review Family History of Problems with Anesthesia: No History of Problems with Anesthesia: No NPO: Yes ASA Class: II Final Preanesthetic Review: No Changes in Pt Med Stat, Meds/Allgs Chart Reviewed and Consent Obtained/Reviewed Patient Risk: Low Procedure Risk: Low Anesthetic Plan Anesthetic Plan: MAC: Disposition: Standard PACU
[2025-02-28 09:14] VITALS: BP 146/91; PULSE 58; RESP 12; TEMP 37; O2SAT 98; BMI 29.3
[2025-02-28] MEDS: Lactated Ringers 1,000 ML 100 ML IVCONT (09:30)
[2025-02-28 11:54] VITALS: BP 117/75; PULSE 59; RESP 16; TEMP 36.2; O2SAT 97
--- NOTE | 2025-02-28 11:57 | PM.OP ---
Brief Operative Note Date of Service: 02/28/25 Pre-op diagnosis: Screening Post-op diagnosis: other (Occasional sigmoid diverticulosis, Internal hemorrhoids) Procedure: Colonoscopy to the cecum and TI Surgeon: Barber Sheffield MD Anesthesia: MAC Was an Heavy Duty Mechanic Farm Equipment used for this Procedure?: No Estimated blood loss (mL): 0 Pathology: none sent Condition: stable Disposition: PACU
[2025-02-28 12:09] VITALS: BP 122/87; PULSE 62; RESP 18; TEMP 36.4; O2SAT 99
--- NOTE | 2025-02-28 22:37 | OP_ITS ---
DATE OF SERVICE: 02/28/2025 SURGEON: Barber Sheffield MD INDICATIONS: The patient presents for evaluation of colorectal cancer screening. Full consent obtained from him for this, including risks of bleeding and perforation. PREOPERATIVE DIAGNOSIS: Colorectal cancer screening. POSTOPERATIVE DIAGNOSIS: PROCEDURE PERFORMED: Colonoscopy to cecum and terminal ileum. ESTIMATED BLOOD LOSS: COMPLICATIONS: ANESTHESIA: Monitored anesthesia care. ASSISTANTS: SPECIMENS: POSTOPERATIVE DIAGNOSES: Colorectal cancer screening, occasional sigmoid diverticulosis, small internal hemorrhoids. DESCRIPTION OF PROCEDURE: The patient was placed in left lateral decubitus position. The digital rectal exam revealed no abnormalities. The Olympus video pediatric colonoscope was entered into the rectum and advanced easily to the cecum. Once in the cecum, I did identify normal-appearing cecal pouch with appendiceal orifice and a normal-appearing ileocecal valve. The terminal ileum was cannulated and appeared normal. Scope was withdrawn back in the colon. The entire cecum and ileocecal valve appeared normal.. The scope was slowly withdrawn assessing all mucosal surfaces carefully. Preparation was excellent. I did not visualize any other polyps, colitis, nor angiodysplasia. There were occasional diverticulae noted in the sigmoid colon. In the rectum, scope was retroflexed visualizing some internal hemorrhoids, but no other pathology. The rectal mucosa appeared normal. Scope was straightened and withdrawn from the patient. He tolerated the procedure well and was returned to recovery area in stable condition. IMPRESSION: 1. Occasional sigmoid diverticulosis. 2. Small internal hemorrhoids. PLAN: Given today's negative exam and negative family history, I would recommend a followup possibly in 10 years for further screening. He will otherwise see me on a p.r.n. basis. Barber Sheffield MD RMW/MODL / [id number] MTDD
== END 2025-02-28 12:51 | disposition home or self-care (01) ==
PROVIDERS: PCP Internal Medicine; Visit Provider Internal Medicine
PROC: 0DJD8ZZ Inspection of Lower Intestinal Tract, Via Natural or Artificial Opening Endoscopic (ICD-10-PCS; CPT 45378; principal; 2025-02-28 10:40)
DX: Z12.11 Encounter for screening for malignant neoplasm of colon (principal); K57.30 Diverticulosis of large intestine without perforation or abscess without bleeding; K64.8 Other hemorrhoids; I10 Essential (primary) hypertension; F32.A Depression, unspecified; Z79.899 Other long term (current) drug therapy; Z88.0 Allergy status to penicillin
CPT/HCPCS: 45378; J2704